=== PATIENT | male | born 1990 | race Hispanic/Latino ===

== ENCOUNTER 2024-12-08 19:02 | Emergency (ER) | payer OTHER ==
[~2024-12-08] VITALS: Ht 180.3 cm; Wt 83.0 kg
--- NOTE | 2024-12-08 19:13 | NUR ---
TRAUMA LEVEL II CALLED TO ROOM 12
--- NOTE | 2024-12-08 19:26 | NUR ---
PATIENT TAKEN TO CT AT THIS TIME
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
[2024-12-08 21:12] VITALS: BP 124/84; PULSE 74; RESP 20; TEMP 98.6; O2SAT 100
--- NOTE | 2024-12-08 21:13 | NUR ---
PATIENT CLEARED BY ED DOCTOR AND IS READY FOR DC
== END 2024-12-08 21:16 ==
LOC: EEVIPCON 19:02 → EDH 19:02
DX: R51.9 Headache, unspecified (principal); M25.511 Pain in right shoulder; M54.50 Low back pain, unspecified; V49.9XXA Car occupant (driver) (passenger) injured in unspecified traffic accident, initial encounter; Y93.89 Activity, other specified; Y92.89 Other specified places as the place of occurrence of the external cause; Y99.8 Other external cause status
CPT/HCPCS: 70450; 71250; 72125; 74176; 99284